=== PATIENT | female | born 1980 | race Asian ===

== ENCOUNTER 2022-03-30 13:08 | Emergency (ER) | payer OTHER ==
[2022-03-30 14:05] LABS: BILIRUBIN,URINE NEGATIVE (NEGATIVE); CLARITY,URINE CLEAR (CLEAR); GLUCOSE, URINE (UA) NEGATIVE (NEGATIVE); KETONES,URINE (UA) NEGATIVE (NEGATIVE); LEUKOCYTE ESTERASE, URINE NEGATIVE (NEGATIVE); NITRITE,URINE NEGATIVE (NEGATIVE); OCCULT BLOOD,URINE NEGATIVE (NEGATIVE); PROTEIN,URINE NEGATIVE (NEGATIVE); UROBILINOGEN,URINE 0.2 (NORMAL) E.U./dL (NORMAL)
[2022-03-30 14:07] LABS: HCG UR QUAL NEGATIVE
[2022-03-30 14:09] LABS: BASOPHILS % (AUTO) 0.5 %; EOSINOPHILS # (AUTO) 0.1 10^3/uL (0.0-0.7); EOSINOPHILS % (AUTO) 1.3 %; HCT - HEMATOCRIT 40.5 % (37.0-47.0); HGB - HEMOGLOBIN 14.3 g/dL (12.0-16.0); LYMPHOCYTES % (AUTO) 33.1 %; MEAN CORPUSCULAR HEMOGLOBIN 31.4 pg (27.0-31.0); MEAN CORPUSCULAR HGB CONC 35.3 g/dL (32.0-36.0); MEAN CORPUSCULAR VOLUME 88.8 fL (81.0-99.0); MONOCYTES # (AUTO) 0.4 10^3/uL (0.0-1.0); MONOCYTES % (AUTO) 6.8 %; NEUTROPHILS # (AUTO) 3.6 10^3/uL (1.5-6.6); NEUTROPHILS % (AUTO) 58.1 %; PLT - PLATELET COUNT 236 10^3/uL (130-450); RED BLOOD COUNT 4.56 10^6/uL (4.20-5.40); WHITE BLOOD COUNT 6.2 x10^3/uL (4.8-10.8)
[2022-03-30 14:22] LABS: ALBUMIN 4.1 g/dL (3.2-5.5); ALBUMIN/GLOBULIN RATIO 1.4 (1.0-2.2); BILIRUBIN,TOTAL 0.6 mg/dL (0.2-1.0); CALCIUM 9.6 mg/dL (8.5-10.3); CREATININE 0.7 mg/dL (0.4-1.0); POTASSIUM 4.1 mmol/L (3.5-5.0); TOTAL PROTEIN 7.1 g/dL (6.7-8.2)
--- NOTE | 2022-03-30 15:45 | ED Physician Documentation ---
PD HPI ABD PAIN - Stated complaint Stated Complaint: ABD PX/DIZZINESS - Chief complaint Chief Complaint: Abd Pain - History obtained from History obtained from: Patient - History of Present Illness Timing - onset: Last night, Yesterday Timing - details: Abrupt onset (when got up from bed had onset of vertigo that improved with holding still briefly. Has recurred with head movement. Also developed through night some cramping abd pains diffusely along with diarrhea.), Still present (but much improved) Quality: Cramping, Aching, Pain (diffusely but more to lower abd.) Location: All over / everywhere Radiation: No: Chest, Lower back Improved by: BM (cramping would cease briefly after diarrheal movement.) Worsened by: Eating. No: Moving Associated symptoms: Nausea, Diarrhea. No: Fever, Vomiting, Constipation, Melena, Hematochezia Similar symptoms before: Has not had sx before Recently seen: Not recently seen Review of Systems Constitutional: reports: Myalgias. denies: Fever, Chills Eyes: denies: Loss of vision, Decreased vision Ears: denies: Ear pain, Tinnitus/ringing Nose: reports: Congestion. denies: Rhinorrhea / runny nose Throat: denies: Sore throat Respiratory: denies: Cough GI: reports: Abdominal Pain, Nausea, Diarrhea. denies: Vomiting, Constipation, Bloody / black stool : denies: Dysuria Skin: denies: Rash, Lesions Musculoskeletal: denies: Neck pain Neurologic: denies: Focal weakness, Numbness, Near syncope, Confused, Altered mental status, Headache PD PAST MEDICAL HISTORY - Past Medical History Cardiovascular: None Respiratory: None Endocrine/Autoimmune: None GI: None - Present Medications Home Medications: Ambulatory Orders Medication Instructions Recorded Confirmed Atorvastatin [Lipitor] 20 mg PO DAILY PM 03/30/22 03/30/22 Duloxetine HCl [Cymbalta] 60 mg PO DAILY 03/30/22 03/30/22 Insulin Aspart [NovoLOG] 6 unit SQ TID 03/30/22 03/30/22 Insulin Glargine,Hum.rec.anlog 32 unit SUBQ BID 03/30/22 03/30/22 [Basaglar Kwikpen U-100] Meclizine HCl [Motion Sickness] 25 mg PO Q6H PRN #20 tablet 03/30/22 Metformin HCl [Metformin ER 1,000 mg PO DAILY 03/30/22 03/30/22 Osmotic] glipiZIDE [Glucotrol] 5 mg PO BID 03/30/22 03/30/22 lisinopriL [Zestril] 5 mg PO DAILY 03/30/22 03/30/22 traZODone [Desyrel] 50 mg PO HS 03/30/22 03/30/22 - Allergies Allergies/Adverse Reactions: Allergies Allergy/AdvReac Type Severity Reaction Status Date / Time paclitaxel [From Taxol] Allergy Anaphylaxis Verified 03/30/22 13:39 PD ED PE NORMAL - Vitals Vital signs reviewed: Yes - General General: Alert and oriented X 3, No acute distress, Well developed/nourished - HEENT HEENT: PERRL, EOMI (mild nystagmus to the left after turning head side to side. she feels more provoked turn head to left. 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, No motor deficit, No sensory deficit, Normal speech Eye Opening: Spontaneous Motor: Obeys Commands Verbal: Oriented GCS Score: 15 Results - Vitals Vitals: Oxygen O2 Source Room air - Labs Labs: Laboratory Tests 03/30/22 03/30/22 03/30/22 13:55 14:03 14:03 WBC 6.2 RBC 4.56 Hgb 14.3 Hct 40.5 MCV 88.8 MCH 31.4 H MCHC 35.3 RDW 12.0 Plt Count 236 MPV 10.0 Neut # (Auto) 3.6 Lymph # (Auto) 2.0 [place] # (Auto) 0.4 Eos # (Auto) 0.1 Baso # (Auto) 0.0 Absolute Nucleated RBC 0.00 Nucleated RBC % 0.0 Sodium 136 Potassium 4.1 Chloride 105 Carbon Dioxide 25 Anion Gap 6.0 BUN 12 Creatinine 0.7 Estimated GFR (MDRD) 93 Glucose 190 H Calcium 9.6 Total Bilirubin 0.6 AST 23 ALT 27 Alkaline Phosphatase 96 Total Protein 7.1 Albumin 4.1 Globulin 3.0 Albumin/Globulin Ratio 1.4 Lipase 43 Urine Color YELLOW Urine Clarity CLEAR Urine pH 7.0 Ur Specific [place] 1.010 Urine Protein NEGATIVE Urine Glucose (UA) NEGATIVE Urine Ketones NEGATIVE Urine Occult Blood NEGATIVE Urine Nitrite NEGATIVE Urine Bilirubin NEGATIVE Urine Urobilinogen 0.2 (NORMAL) Ur Leukocyte Esterase NEGATIVE Ur Microscopic Review NOT INDICATED Urine Culture Comments NOT INDICATED Urine HCG, Qual NEGATIVE PD MEDICAL DECISION MAKING - ED course Complexity details: considered differential (I don't connect the vertigo with the cramps/diarrhea unless part of a general viral illness with congestion/inner ear inflammation and also GI effects. No meds/ingestions to account. symptoms c/w peripheral vertigo. ), d/w patient Departure - Departure Disposition: 01 Home, Self Care Clinical Impression: Acute onset of severe vertigo Diarrhea Qualifiers: Diarrhea type: unspecified type Qualified Code(s): R19.7 - Diarrhea, unspecified Condition: Stable Record reviewed to determine appropriate education?: Yes Instructions: ED Vertigo Unspecified Prescriptions: Meclizine HCl [Motion Sickness] 25 mg PO Q6H PRN #20 tablet PRN Reason: Vertigo Comments: Your vertigo sounds like a problem with the inner ear ear. This can be from fluid congestion or inflammation. I would suggest meclizine every 6-8 hours if needed for vertigo. I would anticipate this improving over the next few days and resolving. Recheck if other symptoms develop such as visual changes, trouble speaking, localized numbness or weakness or any other concerns. Regarding your cramps and diarrhea, I would can think may be a transient viral type illness. Since the diarrhea is tapering already, I would not necessarily treat it in particular. Diet as tolerated for the next couple of days. Recheck if not improved well on both accounts over the next 2 to 3 days. Discharge Date/Time: 03/30/22 16:55
[2022-03-30 16:03] VITALS: BP 155/99
[2022-03-30] MEDS ORDERED: MECLIZINE 12.5 MG TABLET PO STA (16:23)
== END 2022-03-30 16:55 | disposition home or self-care (01) ==
LOC: ED 13:08
DX: R42 Dizziness and giddiness (principal); R19.7 Diarrhea, unspecified
CPT/HCPCS: 36415; 80053; 81003; 81025; 83690; 85025; 99282; 99283; A9270; 81001; 87086

== ENCOUNTER 2022-05-25 14:09 | Emergency (ER) | payer OTHER ==
[2022-05-25 14:17] VITALS: BP 147/100
--- NOTE | 2022-05-25 15:14 | XRAY Report ---
PROCEDURE: Chest 2 View X-Ray INDICATIONS: dyspnea TECHNIQUE: 2 views of the chest were acquired. COMPARISON: None FINDINGS: Surgical changes and devices: None. Lungs and pleura: No pleural effusions or pneumothorax. Lungs are clear. Mediastinum: Mediastinal contours are normal. Heart size is normal. Bones and chest wall: No suspicious bony abnormalities. Soft tissues appear unremarkable. IMPRESSION: No acute cardiopulmonary process demonstrated radiographically. Reviewed by: Celso Newman MD on 05/25/2022 3:13 PM PST Approved by: Celso Newman MD on 05/25/2022 3:13 PM [facility], [place] Station ID: [id number]
--- NOTE | 2022-05-25 15:35 | ED Physician Documentation ---
PD HPI DYSPNEA - Stated complaint Stated Complaint: SOA, NECK/CHEST CRAMP - Chief complaint Chief Complaint: Resp - History obtained from History obtained from: Patient - History of Present Illness Timing - onset: Today Timing - details: Gradual onset, Intermittant Pain level max: 0 Pain level now: 0 Improved by: Rest Worsened by: Exertion Associated symptoms: No: Fever, Cough, Hemoptysis, Wheezing, Chest pain / discomfort, Palpitations, Diaphoresis, Bilateral edema, Unilateral edema - Additional information Additional information: Patient is a 41-year-old female who presents to the emergency department stating that she has a history of squamous cell cancer, has had neck surgery in the past. 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 She states that she noted she had mild difficulty breathing today. Nothing seem to make it better or worse. No fevers. No chills. No rhinorrhea. No congestion. No cough. No recent travel. No leg pain. No history of blood clots. 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 : None HEENT: None Psych: Depression Musculoskeletal: None Derm: None - Past Surgical History Past Surgical History: Yes General: Cholecystectomy Ortho: Other HEENT: Other - Present Medications Home Medications: Ambulatory Orders Medication Instructions Recorded Confirmed Atorvastatin [Lipitor] 20 mg PO DAILY PM 03/30/22 03/30/22 Duloxetine HCl [Cymbalta] 60 mg PO DAILY 03/30/22 03/30/22 Insulin Aspart [NovoLOG] 6 unit SQ TID 03/30/22 03/30/22 Insulin Glargine,Hum.rec.anlog 32 unit SUBQ BID 03/30/22 03/30/22 [Basaglar Kwikpen U-100] Meclizine HCl [Motion Sickness] 25 mg PO Q6H PRN #20 tablet 03/30/22 Metformin HCl [Metformin ER 1,000 mg PO DAILY 03/30/22 03/30/22 Osmotic] glipiZIDE [Glucotrol] 5 mg PO BID 03/30/22 03/30/22 lisinopriL [Zestril] 5 mg PO DAILY 03/30/22 03/30/22 traZODone [Desyrel] 50 mg PO HS 03/30/22 03/30/22 - Allergies Allergies/Adverse Reactions: Allergies Allergy/AdvReac Type Severity Reaction Status Date / Time paclitaxel [From Taxol] Allergy Anaphylaxis Verified 05/25/22 14:14 - Social History Does the pt smoke?: No Smoking Status: Never smoker Does the pt drink ETOH?: Yes Does the pt have substance abuse?: No - Immunizations Immunizations are current?: Yes PD ED PE NORMAL - Vitals Vital signs reviewed: Yes - General General: Alert and oriented X 3, No acute distress - HEENT HEENT: PERRL, Moist mucous membranes - Neck Neck: Supple, no meningeal sign - Cardiac Cardiac: RRR, Strong equal pulses - Respiratory Respiratory: No respiratory distress, Clear bilaterally - Abdomen Abdomen: Normal bowel sounds, Soft, Non tender, Non distended - Back Back: No CVA TTP - Derm Derm: Warm and dry, No rash - Extremities Extremities: No edema, No calf tenderness / cord - Neuro Neuro: Alert and oriented X 3 - Psych Psych: Normal mood, Normal affect Results - Vitals Vitals: Vital Signs - 24 hr 05/25/22 14:14 Temperature 36.5 C Heart Rate 94 Respiratory 18 Rate Blood Pressure 147/100 H O2 Saturation 98 Oxygen O2 Source Room air - EKG (time done) 1629 Rate: Rate (enter#) (82) Rhythm: NSR [place]: Normal Intervals: Normal [place] QRS: Normal Ischemia: Normal ST segments - Labs Labs: Laboratory Tests 05/25/22 15:20 Nasal Adenovirus (PCR) NOT DETECTED Nasal B. parapertussis DNA (PCR) NOT DETECTED Nasal Coronavir 229E PCR NOT DETECTED Nasal Coronavir HKU1 PCR NOT DETECTED Nasal Coronavir NL63 PCR NOT DETECTED Nasal Coronavir OC43 PCR NOT DETECTED Nasal Enterovir/Rhinovir PCR NOT DETECTED Nasal Influenza B PCR NOT DETECTED Nasal Influenza A PCR NOT DETECTED Nasal Parainfluen 1 PCR NOT DETECTED Nasal Parainfluen 2 PCR NOT DETECTED Nasal Parainfluen 3 PCR NOT DETECTED Nasal Parainfluen 4 PCR NOT DETECTED Nasal RSV (PCR) NOT DETECTED Nasal B.pertussis DNA PCR NOT DETECTED Nasal C.pneumoniae (PCR) NOT DETECTED [place] Human Metapneumo PCR NOT DETECTED Nasal M.pneumoniae (PCR) NOT DETECTED Nasal SARS-CoV-2 (PCR) NOT DETECTED - Rads (name of study) cxr Radiology: Final report received, See rad report PD MEDICAL DECISION MAKING - ED course Complexity details: reviewed results, re-evaluated patient, considered differential, d/w patient ED course: Patient is well-appearing, nontoxic. Afebrile. No evidence of PE. Negative chest x-ray. Lungs are clear to auscultation bilaterally. Respiratory PCR is negative. She is in no respiratory distress here. No stridor. No wheezing. Unclear etiology of her earlier symptoms. She is currently asymptomatic. We will have her follow-up with her doctor for further care. Patient counseled regarding signs and symptoms for which I believe and urgent re-evaluation would be necessary. Patient with good understanding of and agreement to plan and is comfortable going home at this time This document was made in part using voice recognition software. While efforts are made to proofread this document, sound alike and grammatical errors may occur. Departure - Departure Disposition: 01 Home, Self Care Clinical Impression: Dyspnea Qualifiers: Dyspnea type: shortness of breath Qualified Code(s): R06.02 - Shortness of breath Condition: Good Instructions: ED Dyspnea Shortness of Breath Follow-Up: your,doctor in 1 week if not better [Other] Comments: Please follow up with your doctor for further care. Please return if you worsen. The cause of your symptoms is unclear today. Discharge Date/Time: 05/25/22 16:39
[2022-05-25 16:20] LABS: B. PARAPERTUSSIS- RESP PCR PAN NOT DETECTED; B. PERTUSSIS- RESP PCR PANEL NOT DETECTED; C. PNEUMONIAE- RESP PCR PANEL NOT DETECTED; CORONAVIRUS 229E-RESP PCR NOT DETECTED; CORONAVIRUS HKU1-RESP PCR NOT DETECTED; CORONAVIRUS NL63-RESP PCR NOT DETECTED; CORONAVIRUS OC43-RESP PCR NOT DETECTED; HUMAN METAPNEUMOVIRUS NOT DETECTED; INFLUENZA A- RESP PCR PANEL NOT DETECTED; INFLUENZA B - RESP PCR PANEL NOT DETECTED; M. PNEUMONIAE- RESP PCR PANEL NOT DETECTED; PARAINFLUENZA VIRUS 1 NOT DETECTED; PARAINFLUENZA VIRUS 2 NOT DETECTED; PARAINFLUENZA VIRUS 3 NOT DETECTED; PARAINFLUENZA VIRUS 4 NOT DETECTED; RHINOVIRUS/ENTEROVIRUS NOT DETECTED; RSV- RESP PCR PANEL NOT DETECTED; SARS-CoV-2 -RESP PCR PANEL NOT DETECTED
== END 2022-05-25 16:39 | disposition home or self-care (01) ==
LOC: ED 14:09
DX: R06.02 Shortness of breath (principal); Z85.828 Personal history of other malignant neoplasm of skin; Z20.822 Contact with and (suspected) exposure to COVID-19
CPT/HCPCS: 87633; 93005; 99283; 99284

== ENCOUNTER 2022-09-09 14:56 | Emergency (ER) | payer OTHER ==
--- NOTE | 2022-09-09 16:29 | ED Physician Documentation ---
History of Present Illness - Stated complaint Stated Complaint: SINUS PX,BLURRY VISION - Chief complaint Chief Complaint: General - History obtained from History obtained from: Patient - Additonal information Additional information: This is a very nice 42-year-old female who presents with several days of sinus congestion and fullness. She feels puffiness around her eyes and has some pressure particular on the right side of her face. She has been taking [id number] decongestant with some relief though it wears off. She believes she had a fever 2 days ago but does not have a thermometer. She has not been taking antipyretics. She states she does have frequent sinus issues but this feels worse than normal, she is not using any type of nasal steroid as she had anxiety with those in the past. 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 She states today she did have a little bit of blurry vision though that has improved since she is got here. She denies any double vision, no thunderclap headache or the worst headache of her life. She denies any facial numbness, speech difficulty, extremity weakness or numbness, discoordination or other acute neurologic changes. She states she has been following her PCP for elevated blood pressure and her lisinopril was just increased yesterday to 20 mg. She is also diabetic and has been monitoring her glucose at home and states has been in the 140s. Review of Systems Constitutional: reports: Fever Eyes: denies: Loss of vision, Decreased vision, Photophobia, Discharge, Irritation Ears: reports: Reviewed and negative Nose: reports: Rhinorrhea / runny nose, Congestion, Sinus pressure / pain Throat: reports: Reviewed and negative Cardiac: reports: Reviewed and negative Respiratory: reports: Reviewed and negative GI: reports: Reviewed and negative : reports: Reviewed and negative Skin: reports: Reviewed and negative Musculoskeletal: reports: Reviewed and negative Neurologic: reports: Reviewed and negative PD PAST MEDICAL HISTORY - Past Medical History Past Medical History: Yes Cardiovascular: Hypertension Respiratory: None Neuro: None Endocrine/Autoimmune: Type 2 diabetes GI: None 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 : None HEENT: None Psych: Depression Musculoskeletal: None Derm: None - Past Surgical History Past Surgical History: Yes General: Cholecystectomy Ortho: Other HEENT: Other - Present Medications Home Medications: Ambulatory Orders Medication Instructions Recorded Confirmed Atorvastatin [Lipitor] 20 mg PO DAILY PM 03/30/22 03/30/22 Duloxetine HCl [Cymbalta] 60 mg PO DAILY 03/30/22 03/30/22 Insulin Aspart [NovoLOG] 6 unit SQ TID 03/30/22 03/30/22 Insulin Glargine,Hum.rec.anlog 32 unit SUBQ BID 03/30/22 03/30/22 [Basaglar Kwikpen U-100] Meclizine HCl [Motion Sickness] 25 mg PO Q6H PRN #20 tablet 03/30/22 Metformin HCl [Metformin ER 1,000 mg PO DAILY 03/30/22 03/30/22 Osmotic] glipiZIDE [Glucotrol] 5 mg PO BID 03/30/22 03/30/22 lisinopriL [Zestril] 5 mg PO DAILY 03/30/22 03/30/22 traZODone [Desyrel] 50 mg PO HS 03/30/22 03/30/22 Amox/Clav 875/125 [Augmentin 1 tablet PO Q12H 5 Days #10 tablet 09/09/22 875/125 Tab] - Allergies Allergies/Adverse Reactions: Allergies Allergy/AdvReac Type Severity Reaction Status Date / Time paclitaxel [From Taxol] Allergy Anaphylaxis Verified 09/09/22 14:59 - Social History Does the pt smoke?: No Smoking Status: Never smoker Does the pt drink ETOH?: Yes Does the pt have substance abuse?: No - Immunizations Immunizations are current?: Yes PD ED PE NORMAL - Vitals Vital signs reviewed: Yes - General General: Alert and oriented X 3, No acute distress, Well developed/nourished - HEENT HEENT: Atraumatic, PERRL, EOMI, Ears normal, Moist mucous membranes, Pharynx benign, Dentition benign, Other (Bilateral swollen nasal mucosa with maxillary tenderness on the right side.) - Neck Neck: Supple, no meningeal sign, No adenopathy, No JVD - Cardiac Cardiac: RRR, No murmur - Respiratory Respiratory: No respiratory distress, Clear bilaterally - Abdomen Abdomen: Normal bowel sounds, Soft, Non tender, Non distended - Derm Derm: Normal color, Warm and dry - Neuro Neuro: Alert and oriented X 3, No motor deficit, No sensory deficit, Normal speech Eye Opening: Spontaneous Motor: Obeys Commands Verbal: Oriented GCS Score: 15 Results - Vitals Vitals: Vital Signs - 24 hr 09/09/22 09/09/22 14:59 16:38 Temperature 36.5 C Heart Rate 96 97 Respiratory 16 14 Rate Blood Pressure 168/97 H 142/90 H O2 Saturation 96 98 Oxygen O2 Source Room air PD Medical Decision Making - ED course Complexity details: reviewed results, re-evaluated patient, considered differential, d/w patient ED course: This is a well-appearing 42-year-old female who presents with sinus congestion and right maxillary pain for the last several days. She has been trying [id number] medication without relief in her symptoms. Today she also had some blurry vision that is has improved and she no longer has any blurry vision, no double vision or decrease in visual field. Her neurologic exam is normal On arrival here, the patient is stable appearing with normal vital signs. She does have right facial tenderness on palpation and going to treat her for possible bacterial sinusitis with Augmentin. Encouraged her to avoid [id number] decongestants that could cause elevation in her blood pressure and continue to monitor blood pressure closely at home given the recent increase in her lisinopril. She was encouraged to utilize frequent nasal saline and Tylenol as needed for pain. I discussed return precautions in detail with the patient if new or worsening symptoms. Departure - Departure Disposition: 01 Home, Self Care Clinical Impression: Acute sinusitis Qualifiers: Sinusitis location: maxillary Recurrence: non-recurrent Qualified Code(s): J01.00 - Acute maxillary sinusitis, unspecified Condition: Good Instructions: ED Headache Sinus, ED Sinusitis Abx Tx Prescriptions: Amox/Clav 875/125 [Augmentin 875/125 Tab] 1 tablet PO Q12H 5 Days #10 tablet Comments: You presented with sinus infection. We are going to treat you with antibiotics for 5 days. Please limit decongestant use given your blood pressure is elevated. Monitor blood pressure closely at home as you just recently increased your blood pressure medication. You can take Tylenol for discomfort, avoid ibu profen for now given your elevated blood pressure. As we discussed, you may try Afrin nasal spray [id number] for the next 2 days but do not use longer than this. I highly recommend frequent Nasal saline spray to help flush out the sinuses. If you have new or worsening symptoms, see your PCP or return to the ER. Discharge Date/Time: 09/09/22 16:37
[2022-09-09 16:39] VITALS: BP 142/90
== END 2022-09-09 16:37 | disposition home or self-care (01) ==
LOC: ED 14:56
DX: J01.00 Acute maxillary sinusitis, unspecified (principal); I10 Essential (primary) hypertension
CPT/HCPCS: 99282; 99283